=== PATIENT | female | born 1995 | race Caucasian/White ===

== ENCOUNTER 2021-12-15 07:49 | Day surgery (SDC) | payer OTHER ==
[~2021-12-15] VITALS: Ht 157.5 cm; Wt 67.1 kg
[2021-12-15] MEDS ORDERED: fentaNYL citrate 0.05 MG/ML VIAL ONE (08:21)
[2021-12-15] MEDS: fentaNYL citrate 0.05 MG/ML VIAL IVP ONE (08:27)
[2021-12-15] MEDS: LIDOCAINE 2% 100 MG/5 ML UJET TP ONE (08:39)
== END 2021-12-15 09:20 | disposition home or self-care (01) ==
LOC: MDS 07:49 → MMU 07:50 → MDS 09:20
PROVIDERS: ATTEND Internal Medicine Gastroenterology
DX: K62.5 Hemorrhage of anus and rectum (principal); Z79.899 Other long term (current) drug therapy
CPT/HCPCS: 81025; J3010